=== PATIENT | male | born 1930 | race African-American/Black ===

== ENCOUNTER 2019-09-28 20:05 | Inpatient (IN) | payer MEDICARE ==
[~2019-09-28] VITALS: Ht 175.3 cm; Wt 70.0 kg
--- NOTE | 2019-09-28 00:59 | NUR ---
PATIENT TO THE FLOOR, STEADY ON HIS FEET WHEN TRANSFERED TO THE BED. NO NEEDS AT THIS TIME.
[2019-09-28] MEDS ORDERED: FUROSEMIDE40 MG PO (20:15)
[2019-09-28] MEDS ORDERED: POTASSIUM CHLO20 MEQ PO (20:15)
[2019-09-28] MEDS ORDERED: PROCARDIA XL60 MG PO (20:15)
[2019-09-28] MEDS ORDERED: SENNA LAXATIVE8.6 MG PO (20:16)
[2019-09-28] MEDS ORDERED: FLOMAX0.4 MG PO (20:16)
[2019-09-28] MEDS ORDERED: ROCALTROL0.25 MCG PO (20:17)
[2019-09-28] MEDS ORDERED: MAGNESIUM OXID420 MG PO (20:17)
[2019-09-28] MEDS ORDERED: COREG6.25 MG PO (20:17)
[2019-09-28] MEDS ORDERED: VITAMIN B-121000 MCG PO (20:18)
[2019-09-28] MEDS ORDERED: OPTIVE SENSITI1 EACH EACH EYE (20:18)
[2019-09-28] MEDS ORDERED: PROCRIT 202000 UNIT/ SC (20:19)
--- NOTE | 2019-09-28 21:45 | NUR ---
PATIENT TO THE FLOOR, PATIENT STEADY ON HIS FEET, PATIENT IS TO GET A UNIT OF BLOOD WILL WAIT TO HEAR WHEN BLOOD IS READY AND INFUSE PER ORDERS.
--- NOTE | 2019-09-28 23:55 | NUR ---
FIRST UNIT OF PRBC INFUSING. STARTING BP 128/71. RESPIRATIONS 20. TEMP: 97.7. HR 80. PATIENT IS ALERT AND ORIENTE, RESTING COMFORTABLY IN BED. NO S/S OF DISTRESS. NO C/O PAIN. CALL LIGHT WITHIN REACH. WILL CPOC.
[2019-09-29] VITALS: BP 128/71; BP 182/83
--- NOTE | 2019-09-29 03:33 | NUR ---
I have reviewed this patient and I concur with the Shift Assessment completed by the Licensed Practical Nurse today this shift.
[2019-09-29 04:00] VITALS: BP 188/70
[2019-09-29 05:09] LABS: BASOPHILS 0.8 % (0-2); EOSINOPHILS 1.3 % (0-7); HEMATOCRIT 27.7 % (42.0-54.0); HEMOGLOBIN 8.5 g/dL (13.5-17.5); IMMATURE GRANULOCYTES 0.3 % (0-5); LYMPHOCYTES 19.9 % (15-50); MCH 26.1 pg (26.0-34.0); MCHC 30.7 g/dL (31.0-37.0); MEAN PLATELET VOLUME 9.3 fL (7.4-10.4); MONOCYTES 12.7 % (2-11); PLATELET COUNT 136 10x3/uL (130-400); RBC 3.26 10x6/uL (4.20-6.10); RDW 13.3 % (11.5-14.5); WBC 3.7 10x3/uL (4.8-10.8)
[2019-09-29 05:26] LABS: % SATURATION 44 % (15-55); IRON 92 ug/dl (35-150); TOTAL IRON BIND CAPACITY 208 ug/dl (260-445); UNSAT IRON BIND CAPACITY 116 ug/dl (150-375)
--- NOTE | 2019-09-29 05:31 | NUR ---
PATIENT IS UNSURE OF NAME OF PHARMACY AND ALSO MEDICATIONS HE IS CURRENTLY TAKING.
[2019-09-29 06:11] LABS: ALBUMIN 3.4 g/dL (3.4-5.0); ALKALINE PHOSPHATASE 58 U/L (30-120); ALT (SGPT) 15 U/L (10-68); CALC OSMOLALITY 300 mosm/kg (275-300); CALCIUM 8.2 mg/dL (8.5-10.1); CARBON DIOXIDE 25.3 mmol/L (21.0-32.0); CHLORIDE - SERUM 104 mmol/L (98-107); CREATININE - SERUM 9.3 mg/dL (0.6-1.3); GLUCOSE 116 mg/dL (74-106); PHOSPHOROUS 4.5 mg/dL (2.5-4.9); PRO BNP 3306 pg/mL (0-450); PROTEIN - SERUM 8.3 g/dL (6.4-8.2); SODIUM 141 mmol/L (136-145); UREA NITROGEN 66 mg/dL (7-18); eGFR NON AFRICAN AMERICAN 6 mL/min (90-120)
[2019-09-29 06:26] LABS: FERRITIN 1572 ng/mL (3-244)
[2019-09-29 06:27] LABS: POTASSIUM - SERUM 2.8 mmol/L (3.5-5.1)
--- NOTE | 2019-09-29 06:31 | NUR ---
PAGED RENAL TO INFORM THEM OF CRITICAL LAB, POTASSIUM.
--- NOTE | 2019-09-29 08:06 | NUR ---
PT SITTING UP IN BED, RR EVEN AND UNLABORED ON RA. DENIES NEEDS OR PAIN AT THIS TIME. CALL LIGHT WITHIN REACH. WILL CONTINUE TO MONITOR.
[2019-09-29 08:25] VITALS: BP 224/84
[2019-09-29 11:01] VITALS: Ht 175.3 cm; Wt 70.0 kg
[2019-09-29 12:37] VITALS: BP 225/83
--- NOTE | 2019-09-29 18:39 | NUR ---
I have reviewed this patient and I concur with the Shift Assessment completed by the Licensed Practical Nurse today this shift.
[2019-09-29 20:00] VITALS: BP 143/57
--- NOTE | 2019-09-29 22:39 | NUR ---
PT RESTING IN BED A/O X4. RR EVEN AND UNLABORED. NO S/S OF DISTRESS. BED LOW CALL LIGHT WITHIN REACH. WILL CONTINUE TO MONITOR.
[2019-09-30 04:00] VITALS: BP 130/66
[2019-09-30 05:25] LABS: HEMATOCRIT 27.6 % (42.0-54.0); HEMOGLOBIN 8.7 g/dL (13.5-17.5); LYMPHOCYTES 20.3 % (15-50); MCH 26.4 pg (26.0-34.0); MCHC 31.5 g/dL (31.0-37.0); MCV 83.9 fL (80.0-100.0); NEUTROPHILS 61.3 % (40-80); RBC 3.29 10x6/uL (4.20-6.10); RDW 13.9 % (11.5-14.5); WBC 3.4 10x3/uL (4.8-10.8)
[2019-09-30 05:30] LABS: PLATELET COUNT 102 10x3/uL (130-400)
[2019-09-30 05:55] LABS: ANION GAP 11.3 mmol/L (8-16); CALCIUM 8.2 mg/dL (8.5-10.1); CARBON DIOXIDE 27.5 mmol/L (21.0-32.0); CREATININE - SERUM 7.1 mg/dL (0.6-1.3); PHOSPHOROUS 4.3 mg/dL (2.5-4.9)
[2019-09-30 06:14] LABS: POTASSIUM - SERUM 2.8 mmol/L (3.5-5.1)
--- NOTE | 2019-09-30 07:45 | NUR ---
REPORT RECIEVED. PT SITTING UP ON BEDSIDE. RR EVEN AND NONLABORED ON RA. 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 BED LOCKED AND IN LOWEST POSITION, CALL LIGHT WITHIN REACH. WILL CTM
[2019-09-30 08:00] VITALS: BP 157/61
[2019-09-30 08:12] LABS: HEPATITIS C ANTIBODY 0.1 S/CO RAT (0.0-0.9)
--- NOTE | 2019-09-30 15:04 | NUR ---
PT RETURNED TO ROOM FROM DIALYSIS.
--- NOTE | 2019-09-30 15:07 | NUR ---
I have reviewed this patient and I concur with the Shift Assessment completed by the Licensed Practical Nurse today this shift.
[2019-09-30 16:00] VITALS: BP 150/66
--- NOTE | 2019-09-30 16:06 | MORECARE ---
CASE MANAGEMENT DISCHARGE SUMMARY PATIENT: DESIRAE SMITH UNIT: [id number] ADM DATE: 09/28/19 AGE: 89 : 32 SEX: M ROOM/BED: D.2101 AUTHOR: MALIK ROLLE PHYSICIAN: REFERRING PHYSICIAN: MAGDALENO SIFUENTES DO DATE OF SERVICE: 09/30/19 Discharge Plan Patient Name: DESIRAE SMITH Facility: [facility]:[place] : 1930 Planned Disposition: Home Anticipated Discharge Date: Discharge Date: Expected LOS: Initial Reviewer: [email or web address] Initial Review Date: 09/30/2019 Generated: 09/30/19 5:05 pm Comments DCP- Discharge Planning Updated by [email or web address]: Marley Rolle on 09/30/19 1:[address] CM went to room to meet for discharge planning/needs. Patient is not in his room. [facility] with [facility] php mysql web [facility] and she states they have already been notified of his admission, she states I do not need to call daily. CM will meet with patient at a later time when he returns from dialysis. DCPIA - Discharge Planning Initial Assessment Updated by [email or web address]: Marley Rolle on 09/30/19 4:04 pm * Is the patient Alert and Oriented? Yes * How many steps to enter\exit or inside your home? 0/0 * [facility] [place] [facility] * Preadmission Environment Home Alone * ADLs Partial Dependent * Partial ADLs (Assistance needed) Ambulation * Equipment Cane Other * Other Equipment 4 wheeled walker with a seat * List name and contact numbers for known caregivers / representatives who currently or will assist patient after discharge: Adan donovan - [phone] * Verbal permission to speak to the caregivers and representatives has been obtained from the patient. Yes * Community resources currently utilized [place] [facility] * Please name any agencies selected above. [facility] * Additional services required to return to the preadmission environment? Yes * Can the patient safely return to the preadmission environment? Yes * Has this patient been hospitalized within the prior 30 days at any hospital? No Patient Name: DESIRAE SMITH Page [id number] at 1606 All edits/amendments must be made on the electronic document DICTATION DATE: 09/30/191604 SAS PROGRAMMER ANALYST: AIXA 09/30/191604 RPT#: [id number] DC DATE: STATUS: ADM IN [facility] [address] [place] [address] END OF REPORT
--- NOTE | 2019-09-30 16:14 | MORECARE ---
CASE MANAGEMENT DISCHARGE SUMMARY PATIENT: DESIRAE SMITH UNIT: [id number] ADM DATE: 09/28/19 AGE: 89 : 32 SEX: M ROOM/BED: D.2101 AUTHOR: SARIAHDOC PHYSICIAN: REFERRING PHYSICIAN: MAGDALENO SIFUENTES DO DATE OF SERVICE: 09/30/19 Discharge Plan Patient Name: DESIRAE SMITH Facility: [facility]:[place] : 1930 Planned Disposition: Home Anticipated Discharge Date: Discharge Date: Expected LOS: Initial Reviewer: [email or web address] Initial Review Date: 09/30/2019 Generated: 09/30/19 5:13 pm Comments DCP- Discharge Planning Updated by [email or web address]: Marley Rolle on 09/30/19 3:[address] Patient Name: DESIRAE SMITH Admission Status: ER Accout number: [id number] Admission Date: 09-28-2019 : 1930 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 CM educated patient on the CM role and verbal consent given by patient to complete assessment. Patient lives at home alone. At discharge patient plans to return and feels this is a safe discharge. CM discussed availability of home health, rehab services, and medical equipment. Patient denied known discharge needs at this time. His street address is [address] [place] [address] in [facility]. He states that he drives himself to the pharmacy, store, etc. He states his nephew, brother and many congregation friends also assist him as needed. His plan is to drive himself to dialysis. States [place] is about 18 miles away and feels this is safe for him. I instructed him to have someone drive him the first day for safety to make sure he tolerates dialysis ok. He has the new dialysis book at bedside that Jenny Jorge has given him. I attempted to call his brother listed on his contact and left a voice message. The second number (w) number did not answer or allow me to leave a message. CM will continue to follow and will assist as needed with dc plans/needs. Coating Supervisor: Marley Rolle DCP- Discharge Planning Updated by [email or web address]: Marley Rolle on 09/30/19 1:[address] CM went to room to meet for discharge planning/needs. Patient is not in his room. [facility] with [facility] pump station operator and she states they have already been notified of his admission, she states I do not need to call daily. CM will meet with patient at a later time when he returns from dialysis. DCPIA - Discharge Planning Initial Assessment Updated by [email or web address]: Marley Rolle on 09/30/19 4:09 pm * Is the patient Alert and Oriented? Yes * How many steps to enter\exit or inside your home? 0/0 * [facility] [place] [facility] * Preadmission Environment Home Alone * ADLs Partial Dependent * Partial ADLs (Assistance needed) Ambulation * Equipment Cane Other * Other Equipment 4 wheeled walker with a seat Blood pressure machine * List name and contact numbers for known caregivers / representatives who currently or will assist patient after discharge: [facility] [phone] * Verbal permission to speak to the caregivers and representatives has been obtained from the patient. Yes * Community resources currently utilized [place] Services * Please name any agencies selected above. [facility] * Additional services required to return to the preadmission environment? Yes * Can the patient safely return to the preadmission environment? Yes * Has this patient been hospitalized within the prior 30 days at any hospital? No Last DP export: 09/30/19 3:06 p Patient Name: DESIRAE SMITH Page [phone] at 1614 All edits/amendments must be made on the electronic document DICTATION DATE: 09/30/191612 SUPERVISOR PIT AND AUXILIARIES: AIXA 09/30/191612 RPT#: [id number] AL DATE: STATUS: ADM IN [facility] [address] [place] [address] END OF REPORT
--- NOTE | 2019-09-30 19:04 | NUR ---
AWAKE AND ALERT WITH BED LOW AND CALL LIGHT IN REACH PT DENIES NEEDS AT THIS TIME
[2019-10-01] VITALS (7 sets, daily range): BP systolic 102–199; BP diastolic 38–71
[2019-10-01 04:48] LABS: ANION GAP 8.3 mmol/L (8-16); CALCIUM 7.9 mg/dL (8.5-10.1); CARBON DIOXIDE 29.1 mmol/L (21.0-32.0); CREATININE - SERUM 5.8 mg/dL (0.6-1.3); POTASSIUM - SERUM 4.4 mmol/L (3.5-5.1)
[2019-10-01 04:49] LABS: PHOSPHOROUS 3.2 mg/dL (2.5-4.9)
[2019-10-01 04:59] LABS: BASOPHILS 0.5 % (0-2); EOSINOPHILS 1.3 % (0-7); HEMATOCRIT 25.8 % (42.0-54.0); HEMOGLOBIN 7.9 g/dL (13.5-17.5); MCH 26.2 pg (26.0-34.0); MCHC 30.6 g/dL (31.0-37.0); MCV 85.7 fL (80.0-100.0); MEAN PLATELET VOLUME 9.8 fL (7.4-10.4); MONOCYTES 17.3 % (2-11); NEUTROPHILS 52.9 % (40-80); RBC 3.01 10x6/uL (4.20-6.10); RDW 13.6 % (11.5-14.5); WBC 3.8 10x3/uL (4.8-10.8)
[2019-10-01 05:02] LABS: PLATELET COUNT 62 10x3/uL (130-400); PLATELET ESTIMATE DECREASED
--- NOTE | 2019-10-01 08:37 | NUR ---
HE IS COLD THIS MORNING, HAS THE BLANKET AROUND HIS NECK. THE CALL LIGHT IS WITHIN REACH. HOPING TO GO HOME TODAY. DENIES AND NEEDS OR PAIN AT THIS TIME.
--- NOTE | 2019-10-01 10:26 | NUR ---
Nutrition Follow-up: HD- T Th sat. Diet: Renal Dental Soft PO intake: none recorded. States that his appetite is getting better and that he is eating well. States that he used to drink Ensure at home but that lately he has been eating well and doesn't need it. Last BM: today (per pt report); WT: 150# (09/29/19); Admit WT: 150# (09/28/19) Meds noted: lasix, Kdur. Labs noted: K 4.4(WNL), BUN 30(H), Cr 5.8(H), GFR 12(L), Glu 96(WNL), Ca 7.9(L), PO4 3.2(WNL) Recommend continue current diet. Encourage PO intake. Offer Nepro if PO intake poor. RD following.
--- NOTE | 2019-10-01 18:55 | NUR ---
BEDSIDE REPORT RECEIVED, PT CARE ASSUMED. INTRODUCED SELF AND WROTE NAME ON BOARD. PT SITTING UP IN BED, WATCHING TV, AAOX4. DENIES ANY NEEDS AT THIS TIME. BED IN LOWEST, SRX2, CALL LIGHT WITHIN REACH. WILL CTM.
--- NOTE | 2019-10-01 20:41 | NUR ---
NIGHT TIME MEDS ADMINISTERED, PER ORDER. REQUESTING PUDDING, PROVIDED. DENIES ANY OTHER NEEDS AT THIS TIME. BED IN LOWEST, SRX1, CALL LIGHT AND URINAL WITHIN REACH. WILL CTM.
[2019-10-02 00:30] VITALS: BP 146/63
[2019-10-02 04:45] VITALS: BP 159/65
[2019-10-02 05:14] LABS: BASOPHILS 0.3 % (0-2); EOSINOPHILS 2.8 % (0-7); HEMATOCRIT 25.2 % (42.0-54.0); HEMOGLOBIN 7.6 g/dL (13.5-17.5); LYMPHOCYTES 28.5 % (15-50); MCHC 30.2 g/dL (31.0-37.0); MCV 86.3 fL (80.0-100.0); MEAN PLATELET VOLUME 9.5 fL (7.4-10.4); MONOCYTES 14.5 % (2-11); NEUTROPHILS 53.9 % (40-80); PLATELET COUNT 74 10x3/uL (130-400); RBC 2.92 10x6/uL (4.20-6.10); RDW 13.5 % (11.5-14.5); WBC 3.9 10x3/uL (4.8-10.8)
[2019-10-02 05:30] LABS: ANION GAP 11.5 mmol/L (8-16); CALCIUM 7.6 mg/dL (8.5-10.1); CARBON DIOXIDE 26.3 mmol/L (21.0-32.0); CREATININE - SERUM 6.5 mg/dL (0.6-1.3); POTASSIUM - SERUM 3.8 mmol/L (3.5-5.1)
[2019-10-02 05:34] LABS: PHOSPHOROUS 4.3 mg/dL (2.5-4.9)
[2019-10-02 11:39] VITALS: BP 191/72
--- NOTE | 2019-10-02 12:57 | NUR ---
1 UNIT RBC'S BEING ADMINISTERED IN DIALYSIS AT THIS TIME.
--- NOTE | 2019-10-02 16:06 | NUR ---
#2 UNIT PRBCs INFUSION STARTED AT THIS BETTIE VSS PT DENIES ANY DISCOMFORT AT THIS TIME NO S/S OF REACTION
[2019-10-02 16:30] VITALS: BP 168/60
--- NOTE | 2019-10-02 17:20 | NUR ---
PT A/o x4 CURRENTLY RECIEVING 1 UNIT OF BLOOD. RR EVEN AND UNLABORED NO S/S OF DISTRESS. PT DENIES ANY PAIN OR FURTHER NEEDS AT THIS TIME. BED LOW CALL LIGHT GUERLINETHILeoneal GARG. WILL CONTINUEM TO MONITOR.
--- NOTE | 2019-10-02 18:35 | NUR ---
I have reviewed this patient and I concur with the Shift Assessment completed by the Licensed Practical Nurse today this shift.
--- NOTE | 2019-10-02 18:55 | NUR ---
BEDSIDE REPORT RECEIVED, PT CARE ASSUMED. WROTE NAME ON BOARD. PT SITTING UP IN BED, WATCHING TV, AAOX4. DENIES ANY NEEDS AT THIS TIME. BED IN LOWEST, SRX2, CALL LIGHT AND URINAL WITHIN REACH. WILL CTM.
[2019-10-02 20:30] VITALS: BP 192/72
[2019-10-03] VITALS (7 sets, daily range): BP systolic 134–182; BP diastolic 61–74
[2019-10-03 04:44] LABS: BASOPHILS 0.5 % (0-2); EOSINOPHILS 2.8 % (0-7); MCH 27.4 pg (26.0-34.0); MCHC 31.5 g/dL (31.0-37.0); MEAN PLATELET VOLUME 10.4 fL (7.4-10.4); MONOCYTES 18.8 % (2-11); NEUTROPHILS 53.9 % (40-80); RDW 13.7 % (11.5-14.5)
[2019-10-03 04:45] LABS: HEMATOCRIT 34.9 % (42.0-54.0); PLATELET COUNT 59 10x3/uL (130-400); RBC 4.01 10x6/uL (4.20-6.10)
[2019-10-03 05:05] LABS: PLATELET ESTIMATE DECREASED
[2019-10-03 05:08] LABS: ANION GAP 9.9 mmol/L (8-16); CALCIUM 7.6 mg/dL (8.5-10.1); CARBON DIOXIDE 25.8 mmol/L (21.0-32.0); PHOSPHOROUS 3.2 mg/dL (2.5-4.9); POTASSIUM - SERUM 3.7 mmol/L (3.5-5.1)
--- NOTE | 2019-10-03 07:20 | NUR ---
RECIEVE REPORT. ALERT AND ORIENTED X4. SITTING UP IN BED. DENIES ANY NEEDS. NO SIGNS OF DISTRESS. CONTINUE PLAN OF CARE AND SAFETY PRECAUTIONS.
--- NOTE | 2019-10-03 18:55 | NUR ---
BEDSIDE REPORT RECEIVED, PT CARE ASSUMED. WROTE NAME ON BOARD. PT SITTING UP IN BED, WATCHING TV, AAOX4. DENIES PAIN OR ANY NEEDS AT THIS TIME. BED IN LOWEST, SRX1, CALL LIGHT AND URINAL WITHIN REACH. WILL CTM.
[2019-10-04] VITALS: BP 161/64
[2019-10-04 04:00] VITALS: BP 190/68
[2019-10-04 06:40] LABS: BASOPHILS 0.3 % (0-2); EOSINOPHILS 2.9 % (0-7); HEMATOCRIT 34.8 % (42.0-54.0); HEMOGLOBIN 10.7 g/dL (13.5-17.5); LYMPHOCYTES 21.6 % (15-50); MCHC 30.7 g/dL (31.0-37.0); MCV 87.7 fL (80.0-100.0); MEAN PLATELET VOLUME 10.7 fL (7.4-10.4); NEUTROPHILS 60.2 % (40-80); RBC 3.97 10x6/uL (4.20-6.10); RDW 13.8 % (11.5-14.5); WBC 3.8 10x3/uL (4.8-10.8)
[2019-10-04 06:53] LABS: PLATELET COUNT 73 10x3/uL (130-400)
[2019-10-04 06:58] LABS: ANION GAP 13.4 mmol/L (8-16); CALCIUM 7.4 mg/dL (8.5-10.1); CARBON DIOXIDE 23.4 mmol/L (21.0-32.0); PHOSPHOROUS 3.9 mg/dL (2.5-4.9); POTASSIUM - SERUM 3.8 mmol/L (3.5-5.1)
--- NOTE | 2019-10-04 07:20 | NUR ---
RECIEVE REPORT. ALERT AND ORIENTED X4. SITTING UP IN BED WATCHING TV. DENIES ANY NEEDS. DENIES SOB OR PAIN. CONTINUE PLAN OF CARE AND SAFETY PRECAUTIONS.
[2019-10-04] MEDS ORDERED: COZAAR50 MG PO (07:47)
--- NOTE | 2019-10-04 09:10 | MORECARE ---
CASE MANAGEMENT DISCHARGE SUMMARY PATIENT: DESIRAE SMITH UNIT: [id number] ADM DATE: 09/28/19 AGE: 89 : 32 SEX: M ROOM/BED: D.2101 AUTHOR: SARIAHDOC PHYSICIAN: REFERRING PHYSICIAN: MAGDALENO SIFUENTES DO DATE OF SERVICE: 10/04/19 Discharge Plan Patient Name: DESIRAE SMITH Facility: [facility]:[place] : 1930 Planned Disposition: Home Anticipated Discharge Date: Discharge Date: Expected LOS: Initial Reviewer: [email or web address] Initial Review Date: 09/30/2019 Generated: 10/04/19 10:09 am Comments DCP- Discharge Planning Updated by [email or web address]: Marley Rolle on 10/04/19 7:[address] I have notified Jenny Luisito of discharge order. She is working on getting the chair time at [facility] in [place]. CM will continue to follow and assist with discharge planning/needs. 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 CM educated patient on the CM role and verbal consent given by patient to complete assessment. Patient lives at home alone. At discharge patient plans to return and feels this is a safe discharge. CM discussed availability of home health, rehab services, and medical equipment. Patient denied known discharge needs at this time. His street address is [address] [place] [address] in [facility]. He states that he drives himself to the pharmacy, store, etc. He states his nephew, brother and many adventism friends also assist him as needed. His plan is to drive himself to dialysis. States [place] is about 18 miles away and feels this is safe for him. I instructed him to have someone drive him the first day for safety to make sure he tolerates dialysis ok. He has the new dialysis book at bedside that Jenny Jorge has given him. I attempted to call his brother listed on his contact and left a voice message. The second number (w) number did not answer or allow me to leave a message. CM will continue to follow and will assist as needed with dc plans/needs. Registration Representative: Marley Rolle DCP- Discharge Planning Updated by [email or web address]: Marley Sariah on 09/30/19 1:[address] CM went to room to meet for discharge planning/needs. Patient is not in his room. I called B[facility] with [facility] conference producer and she states they have already been notified of his admission, she states I do not need to call daily. CM will meet with patient at a later time when he returns from dialysis. DCPIA - Discharge Planning Initial Assessment Updated by [id number]: Marley Sariah on 09/30/19 4:09 pm * Is the patient Alert and Oriented? Yes * How many steps to enter\exit or inside your home? 0/0 * [facility] [place] [facility] * Preadmission Environment Home Alone * ADLs Partial Dependent * Partial ADLs (Assistance needed) Ambulation * Equipment Cane Other * Other Equipment 4 wheeled walker with a seat Blood pressure machine * List name and contact numbers for known caregivers / representatives who currently or will assist patient after discharge: Adan Estrada - brother - [phone] * Verbal permission to speak to the caregivers and representatives has been obtained from the patient. Yes * Community resources currently utilized [place] Services * Please name any agencies selected above. [facility] * Additional services required to return to the preadmission environment? Yes * Can the patient safely return to the preadmission environment? Yes * Has this patient been hospitalized within the prior 30 days at any hospital? No Coverage Notice Reviewer: [id number] - Marley Sariah Notice Issued Date-Time: 10/04/2019 9:03 Notice Type: IM Discharge Notice Notice Delivered To: Patient Relationship to Patient: Self Bull Gang Supervisor Name: Delivery Method: HAND - Hand Delivered Lise Days: Prior Verbal Notification: Recipient Understood Notice: Yes Recipient Signature: Yes Med Rec Note Co-signed by Attending: Coverage Notice Comment: IMM explained, signed, given, copy placed in MR Last DP export: 6/11/20 3:14 p Patient Name: DESIRAE SMITH Page [phone] at 0910 All edits/amendments must be made on the electronic document DICTATION DATE: 10/04/19909 COMMUNITY SERVICE MANAGER: AIXA 10/04/19909 RPT#: [id number] DC DATE: STATUS: ADM IN [facility] [address] [place] [address] END OF REPORT
[2019-10-04 09:35] VITALS: BP 190/68
[2019-10-04 14:33] VITALS: BP 168/63
--- NOTE | 2019-10-04 18:05 | NUR ---
ALERT AND ORIENTED X4. SITTING UP ON SIDE OF BED. DENIES ANY NEEDS. NO CHANGE. WAITING FOR PLACEMENT. CONTINUE PLAN OF CARE AND SAFETY PRECAUTIONS.
[2019-10-04 19:01] VITALS: BP 170/60
[2019-10-04 20:00] VITALS: BP 182/61
--- NOTE | 2019-10-04 20:49 | NUR ---
EVENING ROUNDS COMPLETE. PT LAYING IN BED. NO SIGNS OF DISTRESS. PT DENIES ANY PAIN OR NEEDS AT THIS TIME. CL IN REACH, BED IN LOWEST POSITION.
[2019-10-05] VITALS: BP 173/65
[2019-10-05 04:00] VITALS: BP 179/74
[2019-10-05 09:24] VITALS: BP 182/64
--- NOTE | 2019-10-05 12:25 | NUR ---
Nutrition Follow-up: Good appetite/PO intake. Denies N/V/C/D. Diet: Renal, Dental Soft PO intake: 75-100% Wt: 150# (09/28) Last BM: 10/04 Labs reviewed Meds noted: Lasix, Demetrius, Colace -RD following.
--- NOTE | 2019-10-05 13:13 | NUR ---
DIALYSIS COORDINATOR: PT'S PRIMARY PAYOR IS [facility]. PT MUST HAVE A PRIOR AUTH COMPLETED FOR OPHD PLACEMENT @ [facility], PRIOR TO PLACEMENT/STARTING WITH THE CLINIC, OTHERWISE, HE WILL END UP BEING BILL THE 20% COPAY (IF IT GETS BILLED THROUGH MEDICARE). I HAVE SPOKEN WITH [facility] LIA[facility] & FORWARDED CURRENT MEDICAL RECORDS TO REENA CAMARGO [facility]. (THE LAST RENAL ACOUSTICAL CARPENTER TO SEE PATIENT AT THE [facility] - VIA TELEMED APT ON 09/03/19). WE ARE HOPEFUL THAT SINCE [facility] WAS AWARE THAT PT WAS NEARING END-STAGE, ALREADY HAD AVF & HAD RECENTLY SEEN ACOUSTICAL CARPENTER, IT MAY BE EASIER TO OBTAIN THE PRIOR AUTH. RECORDS HAVE BEEN FAXED TO THE ACOUSTICAL CARPENTER. AWAITING A CALLBACK/RESPONSE AT THIS TIME. SEBASTIEN CHAVEZ.
--- NOTE | 2019-10-05 19:00 | NUR ---
EVENING ROUNDS COMPLETE. PT SITTING UP IN BED. NO SIGNS OF DISTRESS. PT DENIES ANY PAIN OR NEEDS AT THIS TIME. CL IN REACH, BED IN LOWEST POSITION.
[2019-10-05 20:00] VITALS: BP 169/60
[2019-10-05 21:00] VITALS: BP 169/60
[2019-10-06] VITALS: BP 161/60
[2019-10-06 04:00] VITALS: BP 155/52
[2019-10-06 05:20] LABS: BASOPHILS 0.8 % (0-2); EOSINOPHILS 3.2 % (0-7); HEMATOCRIT 32.1 % (42.0-54.0); IMMATURE GRANULOCYTES 0.3 % (0-5); LYMPHOCYTES 24.7 % (15-50); MCH 27.2 pg (26.0-34.0); MCHC 31.2 g/dL (31.0-37.0); MCV 87.5 fL (80.0-100.0); MEAN PLATELET VOLUME 11.2 fL (7.4-10.4); MONOCYTES 16.5 % (2-11); NEUTROPHILS 54.5 % (40-80); RBC 3.67 10x6/uL (4.20-6.10); RDW 13.5 % (11.5-14.5); WBC 3.8 10x3/uL (4.8-10.8)
[2019-10-06 05:23] LABS: ANION GAP 10.5 mmol/L (8-16); CALCIUM 7.6 mg/dL (8.5-10.1); CARBON DIOXIDE 26.2 mmol/L (21.0-32.0); CREATININE - SERUM 4.5 mg/dL (0.6-1.3); PHOSPHOROUS 3.7 mg/dL (2.5-4.9); POTASSIUM - SERUM 3.7 mmol/L (3.5-5.1)
[2019-10-06 05:29] LABS: PLATELET COUNT 58 10x3/uL (130-400); PLATELET ESTIMATE DECREASED
--- NOTE | 2019-10-06 07:03 | NUR ---
REPORT RECIEVED. PT SITTING UP ON BED SIDE. RR EVEN AND NONLABORED ON RA. 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 BED LOCKED AND IN LOWEST POSITION, CALL LIGHT WITHIN REACH. WILL CTM
[2019-10-06 10:30] VITALS: BP 173/54
[2019-10-06 13:03] VITALS: BP 195/70
[2019-10-06 16:58] VITALS: BP 153/60
--- NOTE | 2019-10-06 19:30 | NUR ---
PT IN BED, AAO X 3, RESP EVEN AND UNLABORED. NO DISTRESS NOTED, CL IN REACH, SR UP X 2.
[2019-10-06 20:00] VITALS: BP 178/70
--- NOTE | 2019-10-07 01:51 | NUR ---
I have reviewed this patient and I concur with the Shift Assessment completed by the Licensed Practical Nurse today this shift.
[2019-10-07 05:20] VITALS: BP 156/72
--- NOTE | 2019-10-07 07:04 | NUR ---
PT SITTING UP IN BED, RR EVEN AND UNLABORED. DENIES NEEDS OR PAIN AT THIS TIME. CALL LIGHT WITHIN REACH. BED IN LOWEST POSITION. WILL CONTINUE TO MONITOR.
[2019-10-07 08:50] VITALS: BP 179/63
--- NOTE | 2019-10-07 09:49 | NUR ---
I have reviewed this patient and I concur with the Shift Assessment completed by the Licensed Practical Nurse today this shift.
[2019-10-07 15:00] VITALS: BP 121/73
--- NOTE | 2019-10-07 19:30 | NUR ---
PT IN BED, AOO X 2. RESP EVEN AND UNLABORED. NO DISTRESS NOTED, CL IN REACH, SR UP X 2.
[2019-10-07 20:00] VITALS: BP 156/75
[2019-10-08] VITALS: BP 144/56
[2019-10-08 04:00] VITALS: BP 124/59
--- NOTE | 2019-10-08 05:09 | NUR ---
I have reviewed this patient and I concur with the Shift Assessment completed by the Licensed Practical Nurse today this shift.
--- NOTE | 2019-10-08 07:30 | NUR ---
PT SITTING UP IN BED, RR EVEN AND UNLABORED. DENIES NEEDS OR PAIN AT THIS TIME. CALL LIGHT WITHIN REACH. ICE WATER RECIEVED. WILL CONTINUE TO MONITOR.
[2019-10-08 08:00] VITALS: BP 156/68
[2019-10-08 12:00] VITALS: BP 140/64
[2019-10-08 16:00] VITALS: BP 136/70
[2019-10-08 20:30] VITALS: BP 171/60
[2019-10-09 04:30] VITALS: BP 168/57
[2019-10-09 05:10] LABS: BASOPHILS 0.5 % (0-2); EOSINOPHILS 3.7 % (0-7); HEMOGLOBIN 9.6 g/dL (13.5-17.5); IMMATURE GRANULOCYTES 0.3 % (0-5); LYMPHOCYTES 27.2 % (15-50); MCH 27.3 pg (26.0-34.0); MCV 88.1 fL (80.0-100.0); MEAN PLATELET VOLUME 10.4 fL (7.4-10.4); NEUTROPHILS 52.3 % (40-80); PLATELET COUNT 75 10x3/uL (130-400); RBC 3.52 10x6/uL (4.20-6.10); RDW 13.3 % (11.5-14.5); WBC 3.8 10x3/uL (4.8-10.8)
[2019-10-09 06:25] LABS: ANION GAP 16.6 mmol/L (8-16); CALCIUM 7.6 mg/dL (8.5-10.1); CARBON DIOXIDE 22.1 mmol/L (21.0-32.0); PHOSPHOROUS 4.5 mg/dL (2.5-4.9); POTASSIUM - SERUM 3.7 mmol/L (3.5-5.1)
--- NOTE | 2019-10-09 06:28 | NUR ---
I have reviewed this patient and I concur with the Shift Assessment completed by the Licensed Practical Nurse today this shift.
[2019-10-09 09:56] VITALS: BP 186/74
--- NOTE | 2019-10-09 15:52 | NUR ---
PATIENT BACK FROM DIALYSIS. CL IN REACH. NO NEEDS AT THIS TIME. WILL CALL BROTHER TO COME PICK HIM UP. DISCHARGE PAPERWORK READY. SIDDHARTHA
[2019-10-09 17:20] VITALS: BP 136/58
--- NOTE | 2019-10-09 18:08 | NUR ---
DISCHARGE PAPERWORK GIVEN WITH SPECIAL INSTRUCTIONS FOR [facility] TO [facility]. VERBALIZED UNDERSTANDING. WILL WHEEL DOWN TO FRONT WHEN RIDE ARRIVES.
--- NOTE | 2019-10-10 20:25 | MORECARE ---
CASE MANAGEMENT DISCHARGE SUMMARY PATIENT: DESIRAE SMITH UNIT: [id number] ADM DATE: 09/28/19 AGE: 89 : 32 SEX: M ROOM/BED: D.2101 AUTHOR: MALIK ROLLE PHYSICIAN: REFERRING PHYSICIAN: MAGDALENO SIFUENTES DO DATE OF SERVICE: 10/10/19 Discharge Plan Patient Name: DESIRAE SMITH Facility: [facility]:[place] : 1930 Planned Disposition: Home Anticipated Discharge Date: Discharge Date: 10/09/2019 Expected LOS: Initial Reviewer: [email or web address] Initial Review Date: 09/30/2019 Generated: 10/10/19 9:24 pm Comments DCP- Discharge Planning Updated by [email or web address]: Marley Rolle on 10/04/19 7:[address] I have notified Jenny Luisito of discharge order. She is working on getting the chair time at [facility] in [place]. CM will continue to follow and assist with discharge planning/needs. 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 CM educated patient on the CM role and verbal consent given by patient to complete assessment. Patient lives at home alone. At discharge patient plans to return and feels this is a safe discharge. CM discussed availability of home health, rehab services, and medical equipment. Patient denied known discharge needs at this time. His street address is [address] [place] [address] in [facility]. He states that he drives himself to the pharmacy, store, etc. He states his nephew, brother and many buddhism friends also assist him as needed. His plan is to drive himself to dialysis. States [place] is about 18 miles away and feels this is safe for him. I instructed him to have someone drive him the first day for safety to make sure he tolerates dialysis ok. He has the new dialysis book at bedside that Jenny Jorge has given him. I attempted to call his brother listed on his contact and left a voice message. The second number (w) number did not answer or allow me to leave a message. CM will continue to follow and will assist as needed with dc plans/needs. Telecom Engineer: Marley Rolle DCP- Discharge Planning Updated by [email or web address]: Marley Rolle on 09/30/19 1:[address] CM went to room to meet for discharge planning/needs. Patient is not in his room. I called B[facility] with [facility] drupal architect and she states they have already been notified of his admission, she states I do not need to call daily. CM will meet with patient at a later time when he returns from dialysis. DCPIA - Discharge Planning Initial Assessment Updated by [email or web address]: Marley Rolle on 09/30/19 4:09 pm * Is the patient Alert and Oriented? Yes * How many steps to enter\exit or inside your home? 0/0 * [facility] [place] [facility] * Preadmission Environment Home Alone * ADLs Partial Dependent * Partial ADLs (Assistance needed) Ambulation * Equipment Cane Other * Other Equipment 4 wheeled walker with a seat Blood pressure machine * List name and contact numbers for known caregivers / representatives who currently or will assist patient after discharge: Adan donovan - [phone] * Verbal permission to speak to the caregivers and representatives has been obtained from the patient. Yes * Community resources currently utilized [place] Services * Please name any agencies selected above. [facility] * Additional services required to return to the preadmission environment? Yes * Can the patient safely return to the preadmission environment? Yes * Has this patient been hospitalized within the prior 30 days at any hospital? No Coverage Notice Reviewer: [email or web address] Josselyn Rolle Notice Issued Date-Time: 10/04/2019 9:03 Notice Type: IM Discharge Notice Notice Delivered To: Patient Relationship to Patient: Self Intervention Teacher Name: Delivery Method: HAND - Hand Delivered Lise Days: Prior Verbal Notification: Recipient Understood Notice: Yes Recipient Signature: Yes Med Rec Note Co-signed by Attending: Coverage Notice Comment: IMM explained, signed, given, copy placed in MR Reviewer: [id number] Josselyn Rolle Notice Issued Date-Time: 10/08/2019 14:51 Notice Type: IM Discharge Notice Notice Delivered To: Patient Relationship to Patient: Self Intervention Teacher Name: Delivery Method: HAND - Hand Delivered Lise Days: Prior Verbal Notification: Recipient Understood Notice: Yes Recipient Signature: Yes Med Rec Note Co-signed by Attending: Coverage Notice Comment: IMM explained, signed, given, copy placed in MR Last DP export: 10/04/19 8:10 a Patient Name: DESIRAE SMITH Page 29742 at 2024 All edits/amendments must be made on the electronic document DICTATION DATE: 10/10/192023 TABLET MAKING MACHINE OPERATOR HELPER: AIXA 10/10/192023 RPT#: [id number] DC DATE:10/09/19 STATUS: DIS IN [facility] [address] [place] [address] END OF REPORT
--- NOTE | 2019-10-10 20:32 | MORECARE ---
CASE MANAGEMENT DISCHARGE SUMMARY PATIENT: DESIRAE SMITH UNIT: [id number] ADM DATE: 09/28/19 AGE: 89 : 34 SEX: M ROOM/BED: D.2101 AUTHOR: MALIK ROLLE PHYSICIAN: REFERRING PHYSICIAN: MAGDALENO SIFUENTES DO DATE OF SERVICE: 10/10/19 Discharge Plan Patient Name: DESIRAE SMITH Facility: [facility]:[place] : 1930 Planned Disposition: Home Anticipated Discharge Date: Discharge Date: 10/09/2019 Expected LOS: Initial Reviewer: [email or web address] Initial Review Date: 09/30/2019 Generated: 10/10/19 9:31 pm Comments DCP- Discharge Planning Updated by [email or web address]: Ayla Gerard on 10/10/19 7:[address] CM received notice that patient has Hemodialysis chair in [place] @ 10/12/19 @ 11:00. Patient will discharge with no other needs @ this time. CM will continue to follow and assist as needed with discharge planning/ needs. DCP- Discharge Planning Updated by [email or web address]: Marley Rolle on 10/04/19 7:[address] I have notified Jenny Jorge of discharge order. She is working on getting the chair time at [facility] in [place]. CM will continue to follow and assist with discharge planning/needs. 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 CM educated patient on the CM role and verbal consent given by patient to complete assessment. Patient lives at home alone. At discharge patient plans to return and feels this is a safe discharge. CM discussed availability of home health, rehab services, and medical equipment. Patient denied known discharge needs at this time. His street address is [address] [place] [address] in [facility]. He states that he drives himself to the pharmacy, store, etc. He states his nephew, brother and many ep[employer] friends also assist him as needed. His plan is to drive himself to dialysis. States [place] is about 18 miles away and feels this is safe for him. I instructed him to have someone drive him the first day for safety to make sure he tolerates dialysis ok. He has the new dialysis book at bedside that Jenny Jorge has given him. I attempted to call his brother listed on his contact and left a voice message. The second number (w) number did not answer or allow me to leave a message. CM will continue to follow and will assist as needed with dc plans/needs. Uptwist Spinner: Marley Rolle DCP- Discharge Planning Updated by [email or web address]: Marley Rolle on 09/30/19 1:[address] CM went to room to meet for discharge planning/needs. Patient is not in his room. [facility] and she states they have already been notified of his admission, she states I do not need to call daily. CM will meet with patient at a later time when he returns from dialysis. DCPIA - Discharge Planning Initial Assessment Updated by [email or web address]: Marley Rolle on 09/30/19 4:09 pm * Is the patient Alert and Oriented? Yes * How many steps to enter\exit or inside your home? 0/0 * [facility] [place] [facility] Preadmission Environment Home Alone * ADLs Partial Dependent * Partial ADLs (Assistance needed) Ambulation * Equipment Cane Other * Other Equipment 4 wheeled walker with a seat Blood pressure machine * List name and contact numbers for known caregivers / representatives who currently or will assist patient after discharge: Adan donovan - [phone] * Verbal permission to speak to the caregivers and representatives has been obtained from the patient. Yes * Community resources currently utilized [facility] * Please name any agencies selected above. [facility] * Additional services required to return to the preadmission environment? Yes * Can the patient safely return to the preadmission environment? Yes * Has this patient been hospitalized within the prior 30 days at any hospital? No Coverage Notice Reviewer: [id number] - Marley Rolle Notice Issued Date-Time: 10/04/2019 9:03 Notice Type: IM Discharge Notice Notice Delivered To: Patient Relationship to Patient: Self Flatbed Stitcher Name: Delivery Method: HAND - Hand Delivered Lise Days: Prior Verbal Notification: Recipient Understood Notice: Yes Recipient Signature: Yes Med Rec Note Co-signed by Attending: Coverage Notice Comment: IMM explained, signed, given, copy placed in MR Reviewer: [id number] Josselyn Rolle Notice Issued Date-Time: 10/08/2019 14:51 Notice Type: IM Discharge Notice Notice Delivered To: Patient Relationship to Patient: Self Flatbed Stitcher Name: Delivery Method: HAND - Hand Delivered Lise Days: Prior Verbal Notification: Recipient Understood Notice: Yes Recipient Signature: Yes Med Rec Note Co-signed by Attending: Coverage Notice Comment: IMM explained, signed, given, copy placed in MR Last DP export: 10/10/19 7:25 p Patient Name: DESIRAE SMITH Page [id number] at 2031 All edits/amendments must be made on the electronic document DICTATION DATE: 10/10/192030 PAPER TESTING SUPERVISOR: AIXA 10/10/192030 RPT#: [id number] DC DATE:10/09/19 STATUS: DIS IN [facility] [address] [place] [address] END OF REPORT
[2019-10-11 16:09] LABS: SPE - ALBUMIN 3.3 g/dL (2.9-4.4); SPE - ALPHA-1 GLOBULIN 0.2 g/dL (0.0-0.4); SPE - ALPHA-2 GLOBULIN 0.6 g/dL (0.4-1.0); SPE - BETA GLOBULIN 0.7 g/dL (0.7-1.3); SPE - GAMMA GLOBULIN 1.9 g/dL (0.4-1.8); SPE - M-SPIKE 0.6 g/dL (Not Observed); SPE - TOTAL PROTEIN 6.7 g/dL (6.0-8.5)
== END 2019-10-09 20:04 | disposition home or self-care (01) | DRG 699 ==
LOC: D.ER 20:05 → D.M2 20:52 → D.SDCHOLD 09-30 15:19 → D.M2 09-30 15:54
PROVIDERS: Family Medicine; Internal Medicine Hematology & Oncology; Internal Medicine Nephrology; ADMIT Internal Medicine; ATTEND Internal Medicine
PROC: 5A1D70Z Performance of Urinary Filtration, Intermittent, Less than 6 Hours Per Day (ICD-10-PCS; principal; 2019-09-29)
DX: E11.22 Type 2 diabetes mellitus with diabetic chronic kidney disease (principal); I12.0 Hypertensive chronic kidney disease with stage 5 chronic kidney disease or end stage renal disease; D61.818 Other pancytopenia; N18.6 End stage renal disease; Z99.2 Dependence on renal dialysis; D63.1 Anemia in chronic kidney disease; E83.39 Other disorders of phosphorus metabolism; N40.0 Benign prostatic hyperplasia without lower urinary tract symptoms